=== PATIENT | male | born 2005 | race Caucasian/White ===

== ENCOUNTER 2025-06-27 07:07 | Outpatient (RCR) | payer BC, SELFPAY | END 2025-06-27 23:59 | disposition home or self-care (01) | LOC: RST 07:07 | PROVIDERS: ATTENDING PHYSICIAN Nurse Practitioner; PRIMARYCARE PHYSICIAN Physician Assistant | DX: G40.109 Localization-related (focal) (partial) symptomatic epilepsy and epileptic syndromes with simple partial seizures, not intractable, without status epilepticus (principal); R41.841 Cognitive communication deficit; R41.89 Other symptoms and signs involving cognitive functions and awareness; Z48.811 Encounter for surgical aftercare following surgery on the nervous system | CPT/HCPCS: 92507; 92523; 97167; 97530; 97535; 97537 ==

== ENCOUNTER 2025-07-26 09:22 | Outpatient (RCR) | payer BC, SELFPAY | END 2025-07-26 23:59 | disposition home or self-care (01) | LOC: RST 09:22 | PROVIDERS: ATTENDING PHYSICIAN Nurse Practitioner; PRIMARYCARE PHYSICIAN Physician Assistant | DX: G40.109 Localization-related (focal) (partial) symptomatic epilepsy and epileptic syndromes with simple partial seizures, not intractable, without status epilepticus (principal); R41.841 Cognitive communication deficit; R41.89 Other symptoms and signs involving cognitive functions and awareness; Z48.811 Encounter for surgical aftercare following surgery on the nervous system | CPT/HCPCS: 92507; 97530; 97535; 97537 ==

== ENCOUNTER 2025-08-28 10:23 | Outpatient (RCR) | payer BC, SELFPAY | END 2025-08-28 23:59 | disposition home or self-care (01) | LOC: RST 10:23 | PROVIDERS: ATTENDING PHYSICIAN Nurse Practitioner; PRIMARYCARE PHYSICIAN Physician Assistant | DX: Z48.811 Encounter for surgical aftercare following surgery on the nervous system (principal); G40.109 Localization-related (focal) (partial) symptomatic epilepsy and epileptic syndromes with simple partial seizures, not intractable, without status epilepticus (principal); R41.841 Cognitive communication deficit; R41.89 Other symptoms and signs involving cognitive functions and awareness; Q04.3 Other reduction deformities of brain | CPT/HCPCS: 92507; 97530; 97537 ==

== ENCOUNTER 2025-08-31 16:44 | Emergency (ER) | payer BC, SELFPAY ==
[2025-08-31 16:47] VITALS: BP 123/77
--- NOTE | 2025-08-31 17:28 | ED.GENMED ---
History of Present Illness
General
Chief Complaint: Crisis Evaluation
Source: patient
Exam Limitations: none
Time Seen by Provider: 08/31/25 17:19
History of Present Illness
History of Present Illness:
19yoM with a history of depression and seizures presenting for psychiatric evaluation. Patient reports suicidal ideations earlier today. He had a plan to jump [place] front [place]. His mother called mobile crisis and he was
sent to the ED for evaluation. Patient is agreeable to inpatient psychiatric treatment. He currently takes Lexapro. He denies any history of suicide attempts. He has a medical marijuana card but otherwise denies any illicit drug use. Patient
denies any recent seizures. He had a frontal lobectomy on 04/21/2025 at [facility]. Mother reports that his last tonic-clonic seizure was in November 2024. Patient is currently maintained on lamotrigine, Xcopri, and clobazam.
Phy Exam
General Physical Exam
General Presentation: well appearing and no apparent distress
General Skin: warm and dry
General Habitus: normal
General Mental: alert
General Hydration: appears well hydrated
ENT Exam
ENT Exam: normocephalic
Pulmonary Exam
Pulmonary Exam: no respiratory distress
Neurological Exam
Neurological Exam: alert
[place] Coma Scale
Eye Opening: Spontaneous
Verbal Response: Oriented
Motor Response: Obeys Commands
GCS Total Score: 15
Skin Exam
Skin Exam: normal color and warm/dry
Psychiatric Exam
Psychiatric Exam: suicidal and other (+SI with plan. Cooperative during assessment. No signs of psychosis. )
Course
Orders/Labs/Results
Orders:
Orders
08/31/25 16:51
1:1 Observation - Suicide/ Violent Behavior As Directed
Crisis Consult Urgent
Reason for Consult: + SI
08/31/25 17:46
Alcohol Urgent
Complete Blood Count/With Diff Urgent
Comprehensive Metabolic Panel Urgent
08/31/25 21:33
Fentanyl, Urine Urgent
Urine Drug Abuse Screen Urgent
Date Specimen was Collected: 08/31/25
Time Specimen was Collected: 19:40
08/31/25 22:07
COVID-19 Antigen Urgent
Source: Nasal Swab
Abnormal Lab Results
08/31/25 08/31/25
17:46 21:33
Lymphocytes % 16.2 L %
(20.5-51.1)
Total Protein 8.5 H g/dl
(6.3-8.2)
Albumin 5.4 H g/dl
(3.5-5.0)
U Benzodiazepines Scrn Positive H
(Negative)
U Marijuana (THC) Screen Positive H
(Negative)
08/31/25 17:46
08/31/25 17:46
Vital Signs
Initial and Last Documented VS:
Initial Vital Signs
Temp Pulse Resp BP Pulse Ox
97.9 F 64 18 123/77 98
08/31/25 16:47 08/31/25 16:47 08/31/25 16:47 08/31/25 16:47 08/31/25 16:47
Last Documented Vital Signs
Temp Pulse Resp BP Pulse Ox
98.9 F 58 18 110/64 98
08/31/25 21:00 09/01/25 06:35 08/31/25 16:47 09/01/25 06:35 09/01/25 06:35
MDM/Problems Addressed
Differential Diagnosis Includes:
19yoM presenting for psych evaluation. C/o suicidal ideation with plan. VSS. History of seizures but has not had a seizure in >6 months. Patient is cooperative during exam and there are no signs of psychosis.
Patient evaluated by crisis and he agrees to sign in voluntarily. CBC and CMP ordered which are unremarkable. Patient is medically cleared for psychiatric treatment. Case signed out at shift change awaiting bed placement.
*Pulse Oximetry
SaO2: 98
Oxygen Mode of Delivery: Room air
Patient hypoxic: no
*Critical Care Note
Total Time (30-74mins, 75-104mins- exclusive of procedures): Not Applicable
ED Attending Note
-
Portions of this chart may have been created with voice recognition software.� Occasional wrong word or��sound alike� substitutions may have occurred due to the inherent limitations of voice recognition software.
Discharge Plan
Departure
Patient Disposition: Psych Facility
Discharge Problem:
Suicidal ideations
Prescriptions:
No Action
escitalopram oxalate [Lexapro] 20 mg Tablet
20 mg PO DAILY AT 0700
lamotrigine 200 mg Tablet Extended Release 24hr
200 mg PO HS
lamotrigine 300 mg Tablet Extended Release 24hr
300 mg PO DAILY AT 0700
clobazam 10 mg Tablet
10 mg PO HS
Xcopri 100 mg Tablet
100 mg PO HS
Referrals:
UNKNOWN - PT NOT,INTERVIEWE [Family Provider]
Interventions
Interventions:
*Risk Screen - Suicide Last Done: 08/31/25 16:49
*General Assessment Last Done: 08/31/25 16:49
*Neglect/Abuse Screening Last Done: 08/31/25 16:49
*ED- Fall Risk Assessment Last Done: 08/31/25 17:22
*ED COVID-19 Vaccine History Last Done: 08/31/25 16:49
*ED Influenza Vaccine History Last Done: 08/31/25 16:49
*Nursing Disposition Last Done: 09/01/25 09:34
ED-Psychological Assessment Last Done: 08/31/25 17:22
Discharge Date and Time
Discharge Date/Time: 09/01/25 09:35
Print Language: SAMI
[2025-08-31 17:53] LABS: Hematocrit 41.6 % (39.0-52.0); Hemoglobin 14.2 g/dL (13.0-18.0); Mean Corp Hgb Conc. 34.1 g/dL (33.0-37.0); Mean Corpuscular Volume 88.1 fL (80.0-94.0); Nucleated Red Blood Cells % 0 % (-); Platelet Count 275 10^3/uL (130-400); Red Cell Dist. Width 13.6 % (11.5-14.5)
[2025-08-31 18:06] LABS: ALT (SGPT) 21 U/L (0-50); AST (SGOT) 24 U/L (17-59); Albumin 5.4 g/dl (3.5-5.0); Alkaline Phosphatase 94 U/L (38-126); Blood Urea Nitrogen 17 mg/dl (9-20); Calcium 10.0 mg/dl (8.4-10.2); Carbon Dioxide 25 mmol/L (22-30); Chloride 105 mmol/L (98-107); Glucose 81 mg/dl (70-99); Potassium 4.8 mmol/L (3.5-5.1); Sodium 139 mmol/L (135-145); Total Protein 8.5 g/dl (6.3-8.2); eGFR > 60.00
[2025-08-31 22:38] LABS: COVID-19 Antigen Negative (Negative)
[2025-09-01 06:35] VITALS: BP 110/64
== END 2025-09-01 09:35 ==
LOC: EMR 16:44
PROVIDERS: Physician Assistant; EMERGENCY PHYSICIAN Emergency Medicine
DX: R45.851 Suicidal ideations (principal); F32.A Depression, unspecified; G40.802 Other epilepsy, not intractable, without status epilepticus; Z79.899 Other long term (current) drug therapy
CPT/HCPCS: 99285; 80053; 80306; 80307; 82077; 85025; 87811

== ENCOUNTER 2025-09-28 15:54 | Outpatient (RCR) | payer BC, SELFPAY | END 2025-09-28 23:59 | disposition home or self-care (01) | LOC: RST 15:54 | PROVIDERS: ATTENDING PHYSICIAN Nurse Practitioner; PRIMARYCARE PHYSICIAN Physician Assistant | DX: G40.109 Localization-related (focal) (partial) symptomatic epilepsy and epileptic syndromes with simple partial seizures, not intractable, without status epilepticus (principal); Z48.811 Encounter for surgical aftercare following surgery on the nervous system (principal); R41.89 Other symptoms and signs involving cognitive functions and awareness; R41.841 Cognitive communication deficit; Z73.6 Limitation of activities due to disability; Q04.3 Other reduction deformities of brain; Z98.890 Other specified postprocedural states | CPT/HCPCS: 92507; 97530; 97535; 97537 ==